=== PATIENT | male | born 1995 | race Caucasian/White ===

== ENCOUNTER 2018-01-12 18:45 | Emergency (ER) | payer MEDICAID ==
--- NOTE | 2018-01-12 19:46 | ED Physician Chart ---
ED Chief Complaint/HPI - Patient Information Date Seen:: 01/12/18 Time Seen:: 19:42 Chief Complaint:: Left upper eye lid pain and swelling History of Present Illness:: 22 yo male had pain and swelling in upper left eye lid for 2 days. The pain became worse today. No fever, no excessive secretion. No change of vision. Allergies:: Allergies Allergy/AdvReac Type Severity Reaction Status Date / Time erythromycin base Allergy Verified 01/12/18 19:09 Vitals:: Vital Signs - 8 hr 01/12/18 19:10 Temp 97.4 F HR 95 RR 16 BP 119/72 O2 Sat % 95 ED Review of Systems - Review of Systems General/Constitutional: No fever Skin: No bruising Head: No headache Eyes: No loss of vision ENT: No earache Neck: No neck pain Cardio Vascular: No chest pain Pulmonary: No SOB GI: No nausea, No vomiting G/U: No dysuria Musculoskeletal: No bone or joint pain Psychiatric: No prior psych history ED Past Medical History - Past Medical History Past Medical History: Asthma/COPD Social History: Smoker, Alcohol, Illicit Drug Use (marijuana) Surgical History: None Psychiatricy History: Schizophrenia Family Medical History - Family Member Mother History Unknown: Yes ED Physical Exam - Physical Examination General/Constitutional: Awake Head: Atraumatic Other Eyes comments:: A erythematous, tender nodule inside left upper eyelid Skin: No ecchymosis ENMT: Nasal exam nl Neck: No nuchal rigidity Respiratory: Clear to Auscultation Cardio Vascular: RRR, No murmur, gallop, rubs, NL S1 S2 GI: No tenderness/rebounding/guarding Extremities: normal strength in all extremities Neuro/Psych: No focal deficits ED Assessment - Assessment General Assessment: Left upper eyelid chalazion Assessment/Comments:: ofloxacin 0.3% 1gtt q4h D/c home Warm compress f/u pcp or return to ER if symptoms worsen ED Septic Shock - . Is Septic Shock (SBP<90, OR Lactate>4 mmol\L) present?: No - <6hrs of presentation: Vital Signs: Vital Signs - 8 hr 01/12/18 19:10 Temp 97.4 F HR 95 RR 16 BP 119/72 O2 Sat % 95 ED Reassessment (Disposition) - Reassessment Reassessment Condition:: Improved - Patient Disposition Discharge/Transfer:: Home ED Discharge Plan - Patient Disposition Admit/Discharge/Transfer: PT DISCHARGED HOME Condition at Disposition: Stable Instructions: Tanisha
== END 2018-01-12 20:00 | disposition home or self-care (01) ==
LOC: ER 18:45
DX: H00.14 Chalazion left upper eyelid (principal); J44.9 Chronic obstructive pulmonary disease, unspecified; J45.909 Unspecified asthma, uncomplicated
CPT/HCPCS: Z7502

== ENCOUNTER 2018-09-03 19:39 | Emergency (ER) | payer MEDICAID ==
[2018-09-03] MEDS ORDERED: Dexamethasone Sodium Phos 4 mg/mL Vial INH STA ×2 (20:08→20:15)
[2018-09-03] MEDS ORDERED: Albuterol/Ipratropium Neb 3 ML AERS HHN ONE ×4 (20:08→20:55)
--- NOTE | 2018-09-03 20:13 | ED Physician Chart ---
ED Chief Complaint/HPI - Patient Information Date Seen:: 09/03/18 Time Seen:: 19:50 Chief Complaint:: COUGH ASTHMA WHEEZING History of Present Illness:: 22 YR OLD HM WITH COUGH CONGESTION WHEEZING FOR 3 DAYS Allergies:: Allergies Allergy/AdvReac Type Severity Reaction Status Date / Time erythromycin base Allergy Verified 01/12/18 19:09 Vitals:: Vital Signs - 8 hr 09/03/18 19:51 Temp 99.9 F HR 117 RR 22 BP 136/81 O2 Sat % 93 ED Review of Systems - Review of Systems General/Constitutional: No fever Skin: No skin lesions Head: No headache Eyes: No loss of vision ENT: No earache Neck: No neck pain Cardio Vascular: Chest pain Pulmonary: SOB GI: No nausea G/U: No dysuria Musculoskeletal: No bone or joint pain Psychiatric: No prior psych history Hematopoietic: No bruising Allergic/Immuno: No urticaria Neurological: No syncope ED Past Medical History - Past Medical History Past Medical History: Asthma/COPD Family Medical History - Family Member Mother History Unknown: Yes ED Physical Exam - Physical Examination General/Constitutional: Well-developed, well-nourished Head: Atraumatic Eyes: Lids, conjuctiva normal Skin: Nl inspection ENMT: External ears, nose nl Neck: Nontender (WHEEZING EXP DIFFUSE) Cardio Vascular: RRR : No CVA tenderness Extremities: Full ROM Neuro/Psych: Alert/oriented Misc: Normal back ED Septic Shock - . Is Septic Shock (SBP<90, OR Lactate>4 mmol\L) present?: No - <6hrs of presentation: Vital Signs: Vital Signs - 8 hr 09/03/18 19:51 Temp 99.9 F HR 117 RR 22 BP 136/81 O2 Sat % 93 ED Reassessment (Disposition) - Reassessment Reassessment Condition:: Improved - Diagnosis Diagnosis:: ASTHMA EXACERBATION BRONCHITIS - Aftercare/Follow up Instructions Aftercare/Follow-Up Instructions:: Counseled pt regarding lab results/diagnosis & need follow up - Patient Disposition Discharge/Transfer:: Home Condition at Disposition:: Stable
[2018-09-03] MEDS ORDERED: Dexamethasone Sodium Phos 4 mg/mL Vial ONE ×2 (20:20→20:59)
--- NOTE | 2018-09-04 10:04 | Diagnostic Imaging Report ---
CHEST X-RAY: 2 views INDICATION: Cough COMPARISON: None FINDINGS: There is no focal consolidation or pleural effusions The heart is normal in size. The osseous structures demonstrate no acute abnormalities. IMPRESSION: No acute cardiopulmonary disease.
== END 2018-09-03 23:35 | disposition home or self-care (01) ==
LOC: ER 19:39
DX: J45.901 Unspecified asthma with (acute) exacerbation (principal); Z88.1 Allergy status to other antibiotic agents
CPT/HCPCS: 99284; 96372 ×2; 94640 ×2; 71046; J0696; J1100 ×2; J2930; Z7502